=== PATIENT | female | born 1950 | race Caucasian/White ===

== ENCOUNTER 2019-09-15 08:11 | Emergency (ER) | payer OTHER, BC ==
--- OUTSIDE RECORDS SUMMARY | 2019-09-15 08:16 | XMS REPORT ---
:1950 [facility] Address [address] [place] [address] Care Team Providers Name Role Phone Unavailable Unavailable Unavailable Payers Payer Name Policy Type Policy Number Effective Date Expiration Date Problems This patient has no known problems. Allergies, Adverse Reactions, Alerts Allergy Allergy Status Severity Reaction(s) Onset Inactive Treating Comments Name Type Date Date Clinician No Known DA Active U 2018-06 Allergies -15 00:00:0 0 Medications This patient has no known medications.
[2019-09-15] MEDS ORDERED: DIAZEPAM 10 MG/2 ML INJ SYRINGE ONE (08:36)
[2019-09-15] MEDS ORDERED: KETOROLAC 30 MG/ML INJ ONE (08:36)
[2019-09-15 08:47] LABS: Urine Blood 2+ (NEG); Urine Glucose 2+ (NEG); Urine Protein NEGATIVE (NEG); Urine Specific Gravity 1.025 (1.005-1.030)
[2019-09-15 08:57] LABS: Absolute Lymphocytes (CBC) 2.1 K/uL (0.7-4.9); Basophils % 0.6 % (0-1.3); Hematocrit 44.7 % (36.0-45.0); Lymphocytes % 38.6 % (15.3-44.8); MPV 8.7 fL (7.6-11.3); RBC Red Blood Cell Count 4.84 M/uL (3.86-4.86)
[2019-09-15 08:59] LABS: Urine Bacteria <20 /HPF (<20); Urine Culture Reflex Order REFLEXED; Urine RBC >50 /HPF (NONE SEEN); Urine Urothelial Cells <5 /HPF (NONE SEEN)
[2019-09-15 09:10] LABS: Albumin 3.5 g/dL (3.4-5.0); Bilirubin Direct 0.2 mg/dL (0-0.2); Bilirubin Total 0.8 mg/dL (0.2-1.0); Potassium 3.7 mmol/L (3.5-5.1); Protein, Total 7.9 g/dL (6.4-8.2)
--- NOTE | 2019-09-15 09:14 | RAD REPORT ---
EXAM DESCRIPTION: CT - Stone Protocol - 09/15/2019 8:47 am CLINICAL HISTORY: Abdominal pain. COMPARISON: 2008 TECHNIQUE: Computed axial tomography of the abdomen pelvis was obtained without oral or IV contrast. Lack of IV and oral contrast limits evaluation of solid organs, bowel, and vessels. Coronal reformat roe images were obtained and reviewed. All CT scans are performed using dose optimization technique as appropriate and may include automated exposure control or mA/KV adjustment according to patient size. FINDINGS: A renal calculus is not seen. An ureteral calculus is not noted. A bladder calculus is not present. 5 millimeter low-density lesion within the liver are nonspecific but probably a cyst The Spleen, pancreas and adrenals appear grossly normal There is no evidence of diverticulitis. 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 Hysterectomy IMPRESSION: Negative for a genitourinary calculus
--- NOTE | 2019-09-15 09:36 | RAD REPORT ---
EXAM DESCRIPTION: Michael Single View09/15/2019 9:27 am CLINICAL HISTORY: Abdominal pain COMPARISON: 2013 FINDINGS: The lungs appear clear of acute infiltrate. The heart is normal size IMPRESSION: No acute abnormalities displayed
--- NOTE | 2019-09-15 09:57 | ER ---
Nurse's Notes [facility] Name: Oneyda Johnson Age: 68 yrs Sex: Female : 1950 Arrival Date: 09/15/2019 Time: 08:15 Bed 5 Private MD: Marco Antonio Merino Diagnosis: Low back pain;Urinary tract infection, site not specified Presentation: 09/15 08:20 Presenting complaint: Patient states: since yesterday evening i started having this low tw2 back pain, its worse on the right but it does hurt across both sides on the lower back, i am nauseous at times, and i have had a kidney stone before and it feels like that but i do not have urine urgency or pain. Transition of care: patient was not received from another setting of care. Onset of symptoms was September 15, 2019. Risk Assessment: Do you want to hurt yourself or someone else? Patient reports no desire to harm self or others. Initial Sepsis Screen: Does the patient meet any 2 criteria? No. Patient's initial sepsis screen is negative. Does the patient have a suspected source of infection? No. Patient's initial sepsis screen is negative. Care prior to arrival: None. 08:20 Method Of Arrival: Ambulatory tw2 08:20 Acuity: YOLI 3 tw2 08:21 Note pt ambulatory slowly to the restroom at this time. tw2 Triage Assessment: 08:22 General: Appears uncomfortable, Behavior is calm, cooperative, appropriate for age. tw2 Pain: Complains of pain in right low back. GI: Reports nausea. : Denies burning with urination, urinary frequency. Historical: - Allergies: 08:28 No Known Allergies; sv - Home Meds: 08:28 metformin er 500 mg BID [Active]; Jardiance 25 mg oral tab 1 tab once daily [Active]; sv fluoxetine 20 mg Oral cap 1 cap once daily [Active]; ezetimibe oral 10mg daily oral [Active]; Co Q-10 100 mg oral cap daily [Active]; Vitamin D3 2,000 unit oral tab daily [Active]; Pure way-C 500 mg +R-Alpha lipoic daily [Active]; curamin cap daily prn [Active]; Coenzymated women's 45+ daily [Active]; zinc balance [Active]; - PMHx: 08:28 Diabetes - NIDDM; sv - PSHx: 08:28 ; Hysterectomy; sv - Immunization history:: Adult Immunizations up to date. - Coronavirus screen:: The patient has NOT traveled to [place] in the past 14 days. Proceed with normal triage process as indicated. The patient has NOT had contact with known/suspected case of Coronavirus? Proceed with normal triage procedures. - Social history:: Smoking status: Patient denies any tobacco usage or history of. - Ebola Screening: : No symptoms or risks identified at this time. Screenin:21 Abuse screen: Denies threats or abuse. Nutritional screening: No deficits noted. tw2 Tuberculosis screening: No symptoms or risk factors identified. Fall Risk None identified. Assessment: 08:30 General: Appears uncomfortable, slender, well groomed, Behavior is calm, cooperative, tw2 appropriate for age. Pain: Complains of pain in left low back and right low back. Neuro: Level of Consciousness is awake, alert, obeys commands, Oriented to person, place, time, situation. Cardiovascular: Heart tones S1 S2 Patient's skin is warm and dry. Respiratory: Airway is patent Respiratory effort is even, unlabored, Respiratory pattern is regular, symmetrical, Breath sounds are clear bilaterally. GI: Abdomen is flat, Bowel sounds present X 4 quads. Abd is soft and non tender X 4 quads. Reports nausea. : No signs and/or symptoms were reported regarding the genitourinary system. : Denies burning with urination, urinary frequency. EENT: No signs and/or symptoms were reported regarding the EENT system. Derm: No signs and/or symptoms reported regarding the dermatologic system. Musculoskeletal: Reports pain in right low back and left low back, right is worse. 09:12 Reassessment: Patient appears in no apparent distress at this time. Patient and/or tw2 family updated on plan of care and expected duration. Pain level reassessed. Patient is alert, oriented x 3, equal unlabored respirations, skin warm/dry/pink. Patient states feeling better. Patient states symptoms have improved. 10:00 Reassessment: Patient appears in no apparent distress at this time. Patient and/or hb family updated on plan of care and expected duration. Pain level reassessed. Patient is alert, oriented x 3, equal unlabored respirations, skin warm/dry/pink. Vital Signs: 08:28 Pulse 66; Resp 17; Temp 97.8(TE); Pulse Ox 98% on R/A; Weight 62.6 kg (R); Height 5 ft. tw2 1 in. (154.94 cm); Pain 4/10; 08:30 BP 130 / 68; tw2 09:07 BP 131 / 74; Pulse 50; Resp 16; Pulse Ox 98% on R/A; tw2 10:00 BP 136 / 74; Pulse 68; Resp 15; Pulse Ox 99% on R/A; hb 08:28 Body Mass Index 26.07 (62.60 kg, 154.94 cm) tw2 08:28 "if i move a certain way though its like it just catches just right and its a 10/10 or tw2 off the charts." ED Course: 08:15 Patient arrived in ED. ag5 08:15 Marco Antonio Merino MD is Private Physician. ag5 08:16 Hong Arana PA is PHCP. cp 08:16 Hong Jaime MD is Attending Physician. cp 08:21 Tamara Nance RN is Primary Nurse. tw2 08:21 Arm band placed on. tw2 08:21 Adult w/ patient. tw2 08:29 Patient has correct armband on for positive identification. Bed in low position. Call sv light in reach. Pulse ox on. NIBP on. 08:38 Inserted saline lock: 20 gauge in right antecubital area, using aseptic technique. tw2 Blood collected. 08:48 Triage completed. tw2 10:28 No provider procedures requiring assistance completed. IV discontinued, intact, hb bleeding controlled, No redness/swelling at site. Pressure dressing applied. Administered Medications: 08:38 Drug: TORadol - Ketorolac 15 mg Route: IVP; Site: right antecubital; tw2 09:12 Follow up: Response: No adverse reaction; Pain is decreased tw2 08:40 Drug: Diazepam 2 mg Route: IVP; Site: right antecubital; tw2 09:12 Follow up: Response: No adverse reaction; Pain is decreased tw2 10:02 Drug: Rocephin 1 grams Route: IV; Rate: calculated rate; Site: right antecubital; hb 10:04 Follow up: IV Status: Completed infusion hb 10:28 Follow up: Response: No adverse reaction; IV Intake: 10ml hb Intake: 10:28 IV: 10ml; Total: 10ml. hb Outcome: 09:56 Discharge ordered by MD. cp 10:28 Discharged to home ambulatory, with significant other. hb 10:28 Condition: stable 10:28 Discharge instructions given to patient, Instructed on discharge instructions, follow up and referral plans. medication usage, Demonstrated understanding of instructions, follow-up care, medications, Prescriptions given X 4. 10:30 Patient left the ED. hb Signatures: Ann-Marie Contreras RN RN Hong Arana, MARCUS PA cp Deb Hemphill RN RN Tamara Nance RN RN tw2 Omi Carpio ag5 Corrections: (The following items were deleted from the chart) 08:28 08:22 : Reports urgency, urinary frequency, tw2 tw2
--- NOTE | 2019-09-15 09:57 | EDPHYS ---
Physician Documentation [facility] Name: Oneyda Johnson Age: 68 yrs Sex: Female : 1950 Arrival Date: 09/15/2019 Time: 08:15 Bed 5 Private MD: Marco Antonio Merino ED Physician Hong Jaime HPI: 09/15 08:25 This 68 yrs old Female presents to ER via Unassigned with complaints of Possible Kidney cp Stone. 08:25 The patient presents with pain that is acute, with no known mechanism of injury. cp 08:25 The symptoms are located in the low back, worse on right. Onset: The symptoms/episode cp began/occurred yesterday. Associated signs and symptoms: Pertinent positives: nausea, Pertinent negatives: constipation, fever, incontinence, numbness, urinary retention, vomiting, weakness. The patient has experienced similar episodes in the past, today's symptoms are similar, to when the patient was apparently diagnosed with kidney stone. Historical: - Allergies: 08:28 No Known Allergies; sv - Home Meds: 08:28 metformin er 500 mg BID [Active]; Jardiance 25 mg oral tab 1 tab once daily [Active]; sv fluoxetine 20 mg Oral cap 1 cap once daily [Active]; ezetimibe oral 10mg daily oral [Active]; Co Q-10 100 mg oral cap daily [Active]; Vitamin D3 2,000 unit oral tab daily [Active]; Pure way-C 500 mg +R-Alpha lipoic daily [Active]; curamin cap daily prn [Active]; Coenzymated women's 45+ daily [Active]; zinc balance [Active]; - PMHx: 08:28 Diabetes - NIDDM; sv - PSHx: 08:28 ; Hysterectomy; sv - Immunization history:: Adult Immunizations up to date. - Coronavirus screen:: The patient has NOT traveled to [place] in the past 14 days. Proceed with normal triage process as indicated. The patient has NOT had contact with known/suspected case of Coronavirus? Proceed with normal triage procedures. - Social history:: Smoking status: Patient denies any tobacco usage or history of. - Ebola Screening: : No symptoms or risks identified at this time. ROS: 08:30 Constitutional: Negative for body aches, chills, fever, poor PO intake. cp 08:30 Eyes: Negative for injury, pain, redness, and discharge. cp 08:30 ENT: Negative for drainage from ear(s), ear pain, sore throat, difficulty swallowing, difficulty handling secretions. 08:30 Cardiovascular: Negative for chest pain, edema, palpitations. 08:30 Respiratory: Negative for cough, shortness of breath, wheezing. 08:30 Abdomen/GI: Negative for nausea, vomiting, and diarrhea, constipation, black/tarry stool, rectal bleeding, bowel incontinence. 08:30 Back: Positive for pain at rest, pain with movement, of the right low back, Negative for injury or acute deformity. 08:30 : Negative for urinary symptoms, bladder incontinence. 08:30 Neuro: Negative for altered mental status, headache, numbness, tingling, weakness. 08:30 All other systems are negative. Exam: 08:34 Head/Face: Normocephalic, atraumatic. cp 08:34 Constitutional: The patient appears in no acute distress, alert, awake, non-toxic, well developed, well nourished. 08:34 Eyes: Periorbital structures: appear normal, Conjunctiva: normal, no exudate, no injection, Sclera: no appreciated abnormality, Lids and lashes: appear normal, bilaterally. 08:34 ENT: External ear(s): are unremarkable, Nose: is normal, Mouth: is normal, Posterior pharynx: is normal, airway is patent, no erythema, no exudate. 08:34 Chest/axilla: Inspection: normal. 08:34 Cardiovascular: Rate: normal, Rhythm: regular. 08:34 Respiratory: the patient does not display signs of respiratory distress, Respirations: normal, no use of accessory muscles, labored breathing, is not present. 08:34 Abdomen/GI: Exam negative for discomfort, distension, guarding, Inspection: abdomen appears normal. 08:34 Back: pain, that is moderate, of the right low back, ROM is painful, muscle spasm, is not present. 08:34 Neuro: Orientation: to person, place \\T\\ time. Mentation: is normal, Motor: moves all fours, strength is normal, Gait: is steady. Vital Signs: 08:28 Pulse 66; Resp 17; Temp 97.8(TE); Pulse Ox 98% on R/A; Weight 62.6 kg (R); Height 5 ft. tw2 1 in. (154.94 cm); Pain 4/10; 08:30 BP 130 / 68; tw2 09:07 BP 131 / 74; Pulse 50; Resp 16; Pulse Ox 98% on R/A; tw2 10:00 BP 136 / 74; Pulse 68; Resp 15; Pulse Ox 99% on R/A; hb 08:28 Body Mass Index 26.07 (62.60 kg, 154.94 cm) tw2 08:28 "if i move a certain way though its like it just catches just right and its a 10/10 or tw2 off the charts." MDM: 08:17 Patient medically screened. cp 09:55 Data reviewed: vital signs, nurses notes, lab test result(s), radiologic studies, CT cp scan, and as a result, I will discharge patient. 09:55 Differential diagnosis: ruptured disc, Ureterolithiasis sciatica, cauda equina, spinal cp stenosis. Counseling: I had a detailed discussion with the patient and/or guardian regarding: the historical points, exam findings, and any diagnostic results supporting the discharge/admit diagnosis, lab results, radiology results, the need for outpatient follow up, a family practitioner, to return to the emergency department if symptoms worsen or persist or if there are any questions or concerns that arise at home. Response to treatment: the patient's symptoms have markedly improved after treatment, and as a result, I will discharge patient. 09/15 08:27 Order name: CT Stone Protocol 09/15 10:23 Order name: Basic Metabolic Panel [facility] 09/15 10:23 Order name: CBC with Automated Diff [facility] 09/15 10:23 Order name: Lipase [facility] 09/15 10:23 Order name: Liver (Hepatic) Function [facility] 09/15 10:28 Order name: Urine Dipstick-Ancillary [facility] 09/15 10:29 Order name: Urine Microscopic Only [facility] 09/15 08:17 Order name: Urine Dipstick-Ancillary (obtain specimen); Complete Time: 08:31 09/15 08:27 Order name: IV Saline Lock; Complete Time: 08:45 09/15 08:27 Order name: Labs collected and sent; Complete Time: 08:45 09/15 10:23 Order name: Stone Protocol EDOK Administered Medications: 08:38 Drug: TORadol - Ketorolac 15 mg Route: IVP; Site: right antecubital; tw2 09:12 Follow up: Response: No adverse reaction; Pain is decreased tw2 08:40 Drug: Diazepam 2 mg Route: IVP; Site: right antecubital; tw2 09:12 Follow up: Response: No adverse reaction; Pain is decreased tw2 10:02 Drug: Rocephin 1 grams Route: IV; Rate: calculated rate; Site: right antecubital; hb 10:04 Follow up: IV Status: Completed infusion hb 10:28 Follow up: Response: No adverse reaction; IV Intake: 10ml hb Disposition: 12:20 Co-signature as Attending Physician, Hong Jaime MD I agree with the assessment and [facility] plan of care. Disposition: 09/15/19 09:56 Discharged to Home. Impression: Low back pain, Urinary tract infection, site not specified. - Condition is Stable. - Discharge Instructions: Back Pain, Adult, Urinary Tract Infection, Adult, Heat Therapy, Back Exercises. - Prescriptions for Augmentin 875- 125 mg Oral Tablet - take 1 tablet by ORAL route every 12 hours for 7 days; 14 tablet. Naprosyn 500 mg Oral Tablet - take 1 tablet by ORAL route 2 times per day take with food; 20 tablet. Cyclobenzaprine 10 mg Oral Tablet - take 1 tablet by ORAL route every 8 hours As needed; 20 tablet. Tramadol 50 mg Oral Tablet - take 1 tablet by ORAL route every 8 hours as needed; 20 tablet. - Medication Reconciliation Form, Thank You Letter, Antibiotic Education, Prescription Opioid Use form. - Follow up: Private Physician; When: 2 - 3 days; Reason: Recheck today's complaints. - Problem is new. - Symptoms have improved. Signatures: Dispatcher [employer] Ann-Marie Morales RN RN sv Anderson, Corey, MD MD cha Page, Corey, PA PA cp Baxter, Heather, Tamara Freitas RN, RN RN tw2 Corrections: (The following items were deleted from the chart) 08:25 08:24 This 68 yrs old presents to ER via Unassigned with complaints of Possible Kidney cp Stone. cp 10:30 09:56 09/15/2019 09:56 Discharged to Home. Impression: Low back pain; Urinary tract hb infection, site not specified. Condition is Stable. Forms are Medication Reconciliation Form, Thank You Letter, Antibiotic Education, Prescription Opioid Use. Follow up: Private Physician; When: 2 - 3 days; Reason: Recheck today's complaints. Problem is new. Symptoms have improved. cp
[2019-09-15] MEDS ORDERED: CEFTRIAXONE/SWI 1gm 1 GM/10 ML SYR ONE (10:05)
[2019-09-15 10:46] VITALS: TEMP 97.8
[2019-09-15 10:49] VITALS: BP 136/74; O2SAT 99
== END 2019-09-15 10:30 | disposition home or self-care (01) ==
LOC: ER 08:11
DX: N39.0 Urinary tract infection, site not specified (principal); E11.9 Type 2 diabetes mellitus without complications
CPT/HCPCS: 87088; 85025; 87086; 80048; 36415; 80076; 83690; 76377; 74176; 71045; 96375; 96374; 99284; J3360; J0696; 81003; 81015; 87077; 87186

== ENCOUNTER 2023-05-31 13:52 | Emergency (ER) | payer OTHER, BC ==
--- OUTSIDE RECORDS SUMMARY | 2023-05-31 13:56 | XMS REPORT | Continuity of Care Document ---
:1950 Author Organization [facility] t Address [address] [place] [address] [place] [id number] Care Team Providers Name Role Phone PCP, PATIENT DOES NOT HAVE A Primary Care Physician Unavaila EDWARD Godinez Attending Clinician Unavailable Edward Gilman MD Attending Clinician Doctor Unassigned, [place] Attending Clinician Unavailable Deb Gaming MA Attending Clinician Unavailable NATHALY PEPE Attending Clinician Unavailable VINCENT ROJAS Attending Clinician Unavailable LILIBETH HENDRICKS Attending Clinician Unavailable Olga Cordero MA Attending Clinician Unavailable Therapy, [facility] Covid Infusion Attending Clinician Unavailable Tevin Cowan MD Attending Clinician TEVIN COWAN Attending Clinician Unavailable Sabiha Hernandes RN Attending Clinician Unavailable BRIAN KENDALL Attending Clinician Unavailable Only, [facility] Pob2 Test Attending Clinician Unavailable Brian Kendall DO Attending Clinician Pob1, Acute Care Clinic Attending Clinician Unavailable Risa Mac Attending Clinician RISA VENEGAS Attending Clinician Unavailable EDWARD GILMAN Admitting Clinician Unavailable Payers Payer Name Policy Type Policy Number Effective Date Expiration Date S juan MEDICARE PART A \T\ [id number] 2017 B 00:00:00 [facility] [id number] 2017 00:00:00 BCBS 2 [id number] 2020 00:00:00 Problems Condition Condition Condition Status Onset Resolution Last Treating Co mments Source Name Details Category Date Date Treatment Clinician Date Varicose Varicose Disease Active Unive rs veins of veins of 3-29 [place]y of [place] extrem[place] extremitie 00 Me dical s s Branch Body mass Body mass Disease Active Uni vers index index 3-29 ity of (BMI) (BMI) 00:00: [place] 27.0-27.9, 27.0-27.9, 00 Me dical adult adult Branch Body mass Body mass Disease Active Uni vers index index 3-29 ity of (BMI) (BMI) 00:00: [place] 27.0-27.9, 27.0-27.9, 00 Me dical adult adult Branch COVID-19 COVID-19 Disease Active Unive rs 1-10 ity of 00:00: Medical Branch Congestion Congestion Disease Active U nivers of nasal of nasal 1-10 ity of sinus sinus 00:00: Medical Branch Numbness Numbness Disease Active Unive rs of upper of upper 9-27 ity of limb limb 00:00: [place] [facility] Menopausal Menopausal Disease Active U nivers and female and female 9 it y of climacteri climacteri 00:[place] c states c states 00 Medica l Branch Osteopenia Osteopenia Disease Active U nivers , , 4 ity of unspecifie unspecifie 00:[place] d [place] d location 00 Me dical Branch Screening Screening Disease Active Uni vers for for 4 ity of thyroid thyroid 00:00: [place] disorder disorder 00 Medica l Branch Hyperlipid Hyperlipid Disease Active U nivers emia emia 4 ity of 00:00: [place] 00 Medical Branch Type 2 Type 2 Disease Active Univers diabetes diabetes 4 ity of mellitus mellitus 00:00: [place] without without 00 Medical complicati complicati Br anch on, on, without without long-term long-term current current use of use of insulin insulin Allergies, Adverse Reactions, Alerts Allergy Allergy Status Severity Reaction(s) Onset Inactive Treating Comm ents Source Name Type Date Date Clinician No Known DA Active U 2017- [facility] Allergie 2-15 [place] [facility] NO KNOWN Drug Active Univers ALLERGIE Class ity of S [facility] Social History Social Habit Start Date Stop Date Quantity Comments Source Exposure to 2022-04-28 2022-05-08 Not sure [facility]-CoV-2 00:00:00 10:37:00 [facility] (event) [place] Alcohol intake 2022-05-08 2022-05-08 Ex-drinker [facility] 00:00:00 00:00:00 (finding) [facility] Tobacco use and 2020-11-23 2020-11-23 Smokeless tobacco Un iversity of exposure 00:00:00 00:00:00 non-user [facility] Sex Ass[birth year] At [birth year] Universit y of 00:00:00 00:00:00 [facility] Smoking Status Start Date Stop Date Source Never smoked tobacco [facility] [place] [facility] Medications Ordered Filled Start Stop Current Ordering Indication Dosage Frequency Signature Comments Components Source Medication Medication Date Date Medication? Clinician (SIG) Name Name FLUOXETINE Yes [id number] TAKE 1 U nivers 20 mg 9-23 CAPSULE BY ity of capsule 00:00: MOUTH [place] EVERY DAY Medical Branch FLUOXETINE Yes [id number] TAKE 1 U nivers 20 mg 9-23 CAPSULE BY ity of capsule 00:00: MOUTH EVERY DAY Medical Branch FLUOXETINE Yes [id number] TAKE 1 U nivers 20 mg 9-23 CAPSULE BY ity of capsule 00:00: MOUTH [place] 00 EVERY DAY Medical Branch omega-3s/dh Yes Take by Uni vers a/epa/fish 4-28 mouth. ity of oil/D3 10:25: [place] (VITAMIN-D 52 Medical + OMEGA-3 Branch ORAL) vitamin C Yes 1{tbl} Take 1 Univ ers with marjorie 4-28 tablet by ity o f hips 250 mg 10:25: [place] tablet [place] Ca/D3/mag Yes 1{tbl} Take 1 Univ ers ox/zinc/copper plate lithographer 4-28 tablet by ity of /jorge/bor 10:25: mouth. [place] (CALCIUM 52 Medical 600-D3 Branch PLUS, MAG-ZINC, ORAL) multivitami Yes 1{tbl} Take 1 Un tricia n (MULTIPLE 4-28 tablet by ity of VITAMIN 10:25: mouth. [place] ORAL) Medical Branch OMEGA-3 Yes Take by Univers FATTY 4-28 mouth. ity of ACIDS-FISH 10:25: [place] OIL ORAL 52 Medical Branch COQ10, 0 Yes 1{tbl} Take 1 Univers UBIQUINOL, 4-28 tablet by ity of ORAL 10:25: mouth. [place] [address] Medical Branch ZINC ORAL 0 Yes 1{capsu Take 1 Uni vers 4-28 le} capsule by ity of 10:25: mouth. [address] Branch omega-3s/dh Yes Take by Uni vers a/epa/fish 4-28 mouth. ity of oil/D3 10:25: [place] (VITAMIN-D 52 Medical + OMEGA-3 Branch ORAL) vitamin C Yes 1{tbl} Take 1 Univ ers with marjorie 4-28 tablet by ity o f [place] 250 mg 10:25: [place]. [place] tablet [place] Ca/D3/mag Yes 1{tbl} Take 1 Univ ers ox/zinc/copper plate lithographer 4-28 tablet by ity of /jorge/bor 10:25: mouth. [place] (CALCIUM 52 Medical 600-D3 Branch PLUS, MAG-ZINC, ORAL) multivitami Yes 1{tbl} Take 1 Un tricia n (MULTIPLE 4-28 tablet by ity of VITAMIN 10:25: mouth. [place] ORAL) Medical Branch OMEGA-3 Yes Take by Univers FATTY 4-28 mouth. ity of ACIDS-FISH 10:25: [place] OIL ORAL Medical Branch COQ10, Yes 1{tbl} Take 1 Univers UBIQUINOL, 4-28 tablet by ity of ORAL 10:25: mouth. [place] [address] Medical Branch ZINC ORAL 0 Yes 1{capsu Take 1 Uni vers 4-28 le} capsule by ity of 10:25: mouth. [address] Branch omega-3s/dh 0 Yes Take by Uni vers a/epa/fish 4-28 mouth. ity of oil/D3 10:25: [place] (VITAMIN-D 52 Medical + OMEGA-3 Branch ORAL) vitamin C 0 Yes 1{tbl} Take 1 Univ ers with marjorie 4-28 tablet by ity o f [place] 250 mg 10:25: [place]. [place] tablet 52 [place] Branch Ca/D3/mag 0 Yes 1{tbl} Take 1 Univ ers ox/zinc/copper plate lithographer 4-28 tablet by ity of /jorge/bor 10:25: mouth. [place] (CALCIUM 52 Medical 600-D3 Branch PLUS, MAG-ZINC, ORAL) multivitami Yes 1{tbl} Take 1 Un tricia n (MULTIPLE 4-28 tablet by ity of VITAMIN 10:25: mouth. [place] ORAL) Medical Branch OMEGA-3 Yes Take by Univers FATTY 4-28 mouth. ity of ACIDS-FISH 10:25: [place] OIL ORAL 52 Medical Branch COQ10, Yes 1{tbl} Take 1 Univers UBIQUINOL, 4-28 tablet by ity of ORAL 10:25: mouth. [place] [address] Medical Branch ZINC ORAL 0 Yes 1{capsu Take 1 Uni vers 4-28 le} capsule by ity of 10:25: mouth. [place] [address] Medical Branch omega-3s/dh Yes Take by Uni vers a/epa/fish 4-28 mouth. ity of oil/D3 10:25: [place] (VITAMIN-D 52 Medical + OMEGA-3 Branch ORAL) vitamin C Yes 1{tbl} Take 1 Univ ers with marjorie 4-28 tablet by ity o f hips 250 mg 10:25: [place]. [place] tablet 52 Medical Branch Ca/D3/mag 0 Yes 1{tbl} Take 1 Univ ers ox/zinc/copper plate lithographer 4-28 tablet by ity of /jorge/bor 10:25: mouth. [place] (CALCIUM 52 Medical 600-D3 Branch PLUS, MAG-ZINC, ORAL) multivitami Yes 1{tbl} Take 1 Un tricia n (MULTIPLE 4-28 tablet by ity of VITAMIN 10:25: mouth. [place] ORAL) 52 Medical Branch OMEGA-3 Yes Take by Univers FATTY 4-28 mouth. ity of ACIDS-FISH 10:25: [place] OIL ORAL 52 Medical Branch COQ10, Yes 1{tbl} Take 1 Univers UBIQUINOL, 4-28 tablet by ity of ORAL 10:25: mouth. [address] ZINC ORAL Yes 1{capsu Take 1 Uni vers 4-28 le} capsule by ity of 10:25: mouth. [address] OZEMPIC Yes INJECT Univers 0.25 mg or 3-30 0.25 MG ity of 0.5 mg(2 00:00: ONCE A [place] mg/1.5 mL) 00 WEEK Medica l PnIj DIRECTED Branch OZEMPIC Yes INJECT Univers 0.25 mg or 3-30 0.25 MG ity of 0.5 mg(2 00:00: ONCE A [place] mg/1.5 mL) 00 WEEK Medica l PnIj DIRECTED Branch OZEMPIC Yes INJECT Univers 0.25 mg or 3-30 0.25 MG ity of 0.5 mg(2 00:00: ONCE A [place] mg/1.5 mL) 00 WEEK Medica l PnIj DIRECTED Branch OZEMPIC Yes INJECT Univers 0.25 mg or 3-30 0.25 MG ity of 0.5 mg(2 00:00: ONCE A [place] mg/1.5 mL) 00 WEEK Medica l PnIj DIRECTED Branch hydrOXYchlo Yes 2 po bid Un tricia roQUINE 200 3-28 On day One it y of mg tablet 00:00: [place] Day 2. [place] 00 On day 3-5 Medical Take One Branch Tab Bid . Remain on one Tab Twice a week ivermectin Yes 4 po Each Un tricia 3 mg tablet 3-28 day for 3 ity of 00:00: days [place] [facility] hydrOXYchlo Yes 2 po bid Un tricia roQUINE 200 3-28 On day One it y of mg tablet 00:00: [place] Day 2. [place] 00 On day 3-5 Medical Take One Branch Tab Bid . Remain on one Tab Twice a week ivermectin Yes 4 po Each Un tricia 3 mg tablet 3-28 day for 3 it y of 00:00: days [place] [facility] Branch hydrOXYchlo Yes 2 po bid Un tricia roQUINE 200 3-28 On day One it y of mg tablet 00:00: and Day 2. [place] 00 On day 3-5 Medical Take One Branch Tab Bid . Remain on one Tab Twice a week ivermectin 0 Yes 4 po Each Un tricia 3 mg tablet 3-28 day for 3 ity of 00:00: days [place] Medical [facility] hydrOXYchlo 2021-0 Yes 2 po bid Un tricia roQUINE 200 3-28 On day One it y of mg tablet 00:00: and Day 2. [place] 00 On day 3-5 Medical Take One Branch Tab Bid . Remain on one Tab Twice a week ivermectin 2021- Yes 4 po Each Un tricia 3 mg tablet 3-28 day for 3 ity of 00:00: days [place] 00 Medical Branch traMADoL 50 2021-0 Yes TAKE 1/2-1 Univers mg tablet 3-08 TABLETS BY ity of 00:00: MOUTH [place] 00 EVERY 4-6 Medical HOURS Branch NEEDED FOR PAIN traMADoL 50 2021-0 Yes TAKE 1/2-1 Univers mg tablet 3-08 TABLETS BY ity of 00:00: MOUTH [place] 00 EVERY 4-6 Medical HOURS Branch NEEDED FOR PAIN traMADoL 50 2021-0 Yes TAKE 1/2-1 Univers mg tablet 3-08 TABLETS BY ity of 00:00: MOUTH [place] 00 EVERY 4-6 Medical HOURS Branch NEEDED FOR PAIN traMADoL 50 2021-0 Yes TAKE 1/2-1 Univers mg tablet 3-08 TABLETS BY ity of 00:00: MOUTH [place] 00 EVERY 4-6 Medical HOURS Branch NEEDED FOR PAIN albuterol 5 2021-0 Yes 1{vial} Inhale 1 Univers mg/mL 1-10 Vial. ity of nebulizer 00:00: [place] solution 00 Medical Branch albuterol 5 2021-0 Yes 1{vial} Inhale 1 Univers mg/mL 1-10 Vial. ity of nebulizer 00:00: [place] solution 00 Medical Branch albuterol 5 2021-0 Yes 1{vial} Inhale 1 Univers mg/mL 1-10 Vial. ity of nebulizer 00:00: [place] solution 00 Medical Branch albuterol 5 2021-0 Yes 1{vial} Inhale 1 Univers mg/mL 1-10 Vial. ity of nebulizer 00:00: [place] solution 00 Medical Branch budesonide- 2021-0 2022- No 2{puff} Inhale 2 Univers formoteroL 08-05 01-08 Puffs. ity of 160-4.5 00:00: 05:59 [place] mcg/actuati 00 :00 Medical on inhaler Branch budesonide- 2021-0 2022- No 2{puff} Inhale 2 Univers formoteroL 08-05-08 Puffs. ity of 160-4.5 00:00: 05:59 [place] mcg/actuati 00 :00 Medical on inhaler Branch budesonide- 2021-0 2022- No 2{puff} Inhale 2 Univers formoteroL 08-05-08 Puffs. ity of 160-4.5 00:00: 05:59 [place] mcg/actuati 00 :00 Medical on inhaler Branch budesonide- 2021-0 2022- No 2{puff} Inhale 2 Univers formoteroL 08-05-08 Puffs. ity of 160-4.5 00:00: 05:59 [place] mcg/actuati 00 :00 Medical on inhaler Branch FLUOXETINE 2020-0 Yes [id number] TAKE 1 U nivers 20 mg 9-20 CAPSULE BY ity of capsule 00:00: MOUTH [place] 00 EVERY DAY Medical Branch FLUOXETINE 2020-0 2021- No [id number] TAKE 1 Univers 20 mg 9-20 09-23 CAPSULE BY ity of capsule 00:00: 00:00 MOUTH [place] 00 :00 EVERY DAY Medical Branch ubiquinoL-B Yes Take by Uni vers 12-FA-resve 4-27 mouth. ity of ratroL 10:29: [place] 200-5-0.8-4 46 Medical 00 mg Cap Branch ascorbic 0 Yes Take by 24h00er s acid 4-27 mouth. ity of (VITAMIN C 10:29: [place] ORAL) 46 Medical Branch ZINC ORAL 0 Yes Take by Unive rs 4-27 mouth. ity of 10:29: [place] 46 Medical Branch ubiquinoL-B 0 Yes Take by Uni vers 12-FA-resve 4-27 mouth. ity of ratroL 10:29: [place] 200-5-0.8-4 46 Medical 00 mg Cap Branch ascorbic 0 Yes Take by Univer s acid 4-27 mouth. ity of (VITAMIN C 10:29: [place] ORAL) 46 Medical Branch ZINC ORAL Yes Take by Unive rs - mouth. ity of 10:29: [place] [address] Medical Branch ubiquinoL-B Yes Take by Uni vers 12-FA-resve 11-23 mouth. ity of ratroL 10:29: [place] 200-5-0.8-4 46 Medical 00 mg Cap Branch ascorbic Yes Take by Univer s acid - mouth. ity of (VITAMIN C 10:29: [place] ORAL) Medical Branch ZINC ORAL Yes Take by Unive rs - mouth. ity of 10:29: [place] [address] Medical Branch ubiquinoL-B Yes Take by Uni vers 12-FA-resve 11-23 mouth. ity of ratroL 10:29: [place] 200-5-0.8-4 46 Medical 00 mg Cap Branch ascorbic Yes Take by Univer s acid - mouth. ity of (VITAMIN C 10:29: [place] ORAL) Medical Branch ZINC ORAL Yes Take by Unive rs - mouth. ity of 10:29: [place] [address] Medical Branch empaglifloz Yes 1{tbl} Take 1 Un tricia in 4-06 tablet by ity of (JARDIANCE) 00:00: [place]. [place] 25 mg Tab 00 Medical Branch ezetimibe Yes 10mg Take 10 mg Un tricia 10 mg 4-06 by mouth. ity of tablet 00:00: [place] 00 Medical Branch metformin Yes Take 2 Univer s ER 500 mg 4-06 tabs each ity o f 24 hr 00:00: morning. [place] tablet 00 If have Medical low blood Branch sugar then take 1 tab twice daily. empaglifloz Yes 1{tbl} Take 1 Un tricia in 4-06 tablet by ity of (JARDIANCE) 00:00: [place]. [place] 25 mg Tab 00 Medical Branch ezetimibe Yes 10mg Take 10 mg Un tricia 10 mg 4-06 by mouth. ity of tablet 00:00: [place] 00 Medical Branch metformin Yes Take 2 Univer s ER 500 mg 4-06 tabs each ity o f 24 hr 00:00: morning. [place] tablet 00 If have Medical low blood Branch sugar then take 1 tab twice daily. empaglifloz Yes 1{tbl} Take 1 Un tricia in 4-06 tablet by ity of (JARDIANCE) 00:00: [place]. [place] 25 mg Tab 00 Medical Branch ezetimibe Yes 10mg Take 10 mg Un tricia 10 mg 4-06 by mouth. ity of tablet 00:00: [place] [facility] metformin Yes Take 2 Univer s ER 500 mg 4-06 tabs each ity o f 24 hr 00:00: morning. [place] tablet 00 If have Medical low blood Branch sugar then take 1 tab twice daily. empaglifloz Yes 1{tbl} Take 1 Un tricia in 4-06 tablet by ity of (JARDIANCE) 00:00: [place]. [place] 25 mg Tab 00 Medical [place] ezetimibe Yes 10mg Take 10 mg Un tricia 10 mg 4-06 by mouth. ity of tablet 00:00: [facility] metformin Yes Take 2 Univer s ER 500 mg 4-06 tabs each ity o f 24 hr 00:00: morning. tablet 00 If have Medical low blood Branch sugar then take 1 tab twice daily. Vital Signs Vital Name Observation Time Observation Value Comments Source Systolic blood 2021-11-24 15:19:00 111 mm[Hg] [place] [facility] Diastolic blood 2021-11-24 15:19:00 72 mm[Hg] [place] [facility] Heart rate 2021-11-24 15:19:00 53 /min [facility] Body temperature 2021-11-24 15:19:00 36.89 Nicci [facility] Respiratory rate 2021-11-24 15:19:00 18 /min [facility] Body height 2021-11-24 15:19:00 154.9 cm [facility] Body weight 2021-11-24 15:19:00 64.921 kg [facility] BMI 2021-11-24 15:19:00 27.04 kg/m2 [facility] Procedures Procedure Date / Time Performing Clinician Source Performed BI SCREENING 2022-05-08 16:05:00 Edward Gilman [facility] [facility] f [place] TOMOSYNTHESIS BILATERAL [facility] Branch ASSIGNMENT OF BENEFITS 2022-05-08 15:35:07 Doctor Unasscameron, Renetta [facility] Encounters Start End Encounter Admission Attending Care Care Encounter Source Date/Time Date/Time Type Type Clinicians Facility Department ID 2022-11-27 2022-11-27 Outpatient EDWARD ZIEGLER [facility] [id number] Univers 10:00:00 10:00:00 ity of [facility] 2022-11-27 2022-11-27 Outpatient EDWARD ZIEGLER [facility] [id number] Univers 10:00:00 10:00:00 ity [facility] 2022-09-08 2022-09-08 Outpatient MHIE MHIE [id number] [place] 11:00:00 11:00:00 00 jim Real 2022-08-30 2022-08-30 Outpatient MHIE MHIE [id number] [place] 13:00:00 13:00:00 02 jim Real 2022-08-04 2022-08-04 Outpatient MHIE MHIE [id number] [place] 15:00:00 15:00:00 01 Farhan 2022-05-08 2022-05-08 Outpatient EDWARD ZIEGLER [facility] [id number] Univers 10:38:25 23:59:00 ity [facility] 2022-05-08 2022-05-08 [facility] Edward Gilman [facility] [id number] Univers 10:20:00 23:59:00 Encounter [place] [id number] ity of [place] 4.2.7.2.686 [facility] [id number] [facility] 800 Branch 2022-05-08 2022-05-08 Orders Doctor GORMAN 1.2.840.114 [id number] Univers 00:00:00 00:00:00 Only Unassigned, GREGORIO [id number] ity of [place] [facility] 4.2.7.2.686 Lui [id number] [address] 2022-03-27 2022-03-27 Refill Edward Gilman [facility] [id number] Univers 00:00:00 00:00:00 KETAN [id number] it y of [place] 4.2.7.2.686 [place] [facility] [id number] [address] 2021-11-24 2021-11-24 Office Edward Gilman [facility] [id number] Univers 10:00:00 11:05:02 Visit KETAN [id number] it y of [place] 4[place]2.7.2.686 [place] [facility] [id number] [address] 2021-11-24 2021-11-24 Outpatient R EDWARD GILMAN [facility] [id number] Univers 10:00:00 11:05:02 ity [facility] 2021-11-24 2021-11-24 Outpatient R EDWARD GILMAN [facility] [id number] Univers 10:00:00 11:05:02 ity [facility] 2021-11-24 2021-11-24 Outpatient R EDWARD GILMAN [facility] [id number] Univers 10:00:00 10:00:00 ity [facility] 2021-11-23 2021-11-23 Pre Visit MATT Gaming [id number] Univers 00:00:00 00:00:00 Outreach Deb AMADOR [id number] i ty of [place]2.7.2.686 [place] [id number] [facility] [address] [place] 2021-09-27 2021-09-27 Outpatient NATHALY PEPE [id number] Sheila 00:00:00 00:00:00 Seybol d 2021-08-17 2021-08-17 Orders Doctor VITA 1.2.840.114 [id number] Univers 00:00:00 00:00:00 Only Unassigned, GREGORIO [id number] ity of [place] [facility] 4.2.7.2.686 Lui as [id number] [address] 2021-08-11 2021-08-11 Outpatient SHEILA ROJAS [id number] Sheila 00:00:00 00:00:00 VINCENT pugh 2021-08-09 2021-08-09 Outpatient SHEILA HENDRICKS [id number] Sheila 00:00:00 00:00:00 LILIBETH burnham 2021-08-08 2021-08-08 Pre Visit MATT Cordero [id number] Univers 00:00:00 00:00:00 Outreach Olga AMADOR 350.1.13.10 i ty of [place]2.[place] [id number] [facility] [address] [place] 2021-08-06 2021-08-06 Nurse Therapy, Adc Covid Infusion [facility] 1.2.840.114 [id number] Univers 09:00:00 10:00:00 Visit Tevin Cowan 350.1.13.10 ity [facility] 4.2.7.2.686 [place] [id number] [facility] 053 Branch 2021-08-06 2021-08-06 Outpatient Tyrese COWAN [facility] [id number] Univers 09:00:00 09:00:00 TEVIN turner [facility] 2021-08-06 2021-08-06 Orders Doctor GORMAN 1.2.840.114 [id number] Univers 00:00:00 00:00:00 Only Unassigned, GREGORIO 350.1.13.10 ity of [place] [facility] 4.2.7.2.686 Lui as [id number] [facility] 009 Branch 2021-08-05 2021-08-05 Letter VITA Hernandes 1.2.840.114 [id number] Univers 00:00:00 00:00:00 (Out) Sabiha PERKINS [id number] it y of [facility] 4.2.7.2.686 Lui as [id number] [facility] 019 Branch 2021-08-04 2021-08-04 Outpatient Tyrese KENDALL [facility] [id number] Univers 10:00:00 10:00:00 BRIAN turner [facility] 2021-08-04 2021-08-04 Laboratory Only, Adc Pob2 Test [facility] 1.2 .840.114 [id number] Univers 10:00:00 10:00:00 Only ForeignBrian 350.1.13 .10 ity [facility] 4.2.7.2.686 [facility] [id number] Ak dical [facility] [address] [place] BUILDING 2021-05-06 2021-05-06 [facility] 1.2.840.114 [id number] Univers 10:09: 23:59:00 Encounter Gabe 350.1.13.10 ity of [place] 4.2.7.2.686 [facility] [id number] [address] 2021-05-06 2021-05-06 Outpatient R GIBSON GILMANN [facility] [id number] Univers 00:00:00 00:00:00 ity of [facility] 2021-04-18 2021-04-18 Refill Mukul [facility] 1.2.840.114 [id number] Univers 00:00:00 00:00:00 Ketan 350.1.13.10 it y of Women's 4.2.7.2.686 [facility] [id number] [facility] 134 Branch 2021-04-01 2021-04-01 Outpatient R GIBSON GILMANN [facility] [id number] Univers 00:00:00 00:00:00 ity of [facility] 2020-11-29 2020-11-[address] [facility] 1.2.840.114 [id number] Univers 10:20:00 23:59:00 Encounter [facility] [place] [id number] ity of [place] 4.2.7.2.686 [facility] [id number] [facility] [address] [place] 2020-11-29 2020-11-29 Outpatient R GIBSON GILMANN [facility] [id number] Univers 00:00:00 00:00:00 ity of [facility] 2020-11-23 2020-11-23 Outpatient R MUKUL EDWARD [facility] [id number] Univers 10:00:00 10:00:00 ity of [facility] 2020-11-23 2020-11-23 Orders Doctor VITA 1.2.840.114 [id number] Univers 00:00:00 00:00:00 Only Unassigned, GREGORIO 350.1.13.10 ity of [place] [facility] 4.2.7.2.686 Lui as [id number] [address] 2020-03-13 2020-03-13 Urgent Pob1, Acute Care Clinic [facility] 1. 2.840.114 [id number] Univers 12:27:45 12:47:45 [facility] [id number] ity of [place] 4.2.7.2.686 Lui as Professio [id number] Ak dical [address] Office Building [facility] 2020-03-13 2020-03-13 Urgent Pob1, Acute [facility] 1.2.840.114 [id number] 12:27:45 12:47:45 [facility] 350.1.13.10 [place] 4.2.7.2.686 Professio [id number] [place] [address] Office Building [facility] 2020-03-13 2020-03-13 [facility] [id number] Univers 12:20:00 12:20:00 RISA ity [facility] 2020-03-13 2020-03-13 Letter Doctor VITA 1.2.840.114 [id number] Univers 00:00:00 00:00:00 (Out) Unassigned, GREGORIO 350.1.13.10 ity of [place] [facility] 4.2.7.2.686 Lui as [id number] [address] 2020-03-13 2020-03-13 Letter Doctor VITA 1.2.840.114 [id number] 00:00:00 00:00:00 (Out) Unassigned, GREGORIO 350.1.13.10 [place] [facility] 4.2.7.2.686 [id number] Results This patient has no known results.
--- NOTE | 2023-05-31 15:21 | RAD REPORT ---
EXAM DESCRIPTION: RAD - Wrist Left 2 View - 05/31/2023 3:13 pm CLINICAL HISTORY: SMASH INJURY COMPARISON: No comparisons TECHNIQUE: Left wrist, 3 views. FINDINGS: Cortical irregularities suggesting minimally displaced fracture along the medial distal ra dial cortex best appreciated on the oblique view. There is no dislocation or periosteal reaction note d. No suspicious bony finding. No foreign body. Soft tissue swelling about the wrist medially. IMPRESSION: Minimally displaced fracture along the medial distal radial cortex. Additional soft tiss ue swelling.
--- NOTE | 2023-05-31 15:23 | RAD REPORT ---
EXAM DESCRIPTION: RAD - Elbow Left 2 View - 05/31/2023 3:13 pm CLINICAL HISTORY: SMASH INJURY COMPARISON: No comparisons TECHNIQUE: Left elbow, 3 views. FINDINGS: No fracture is identified. No elevated posterior fat pad to suggest an effusion. Enthesopa thy at the common extensor tendon attachment. There is no dislocation or periosteal reaction noted. No foreign body or other soft tissue abnormalit y. IMPRESSION: No acute osseous abnormality of the left elbow.
--- NOTE | 2023-05-31 15:35 | ER ---
Nurse's Notes [facility] Name: Oneyda Johnson Age: 72 yrs Sex: Female : 1950 Arrival Date: 05/31/2023 Time: 13:52 Bed 11 Private MD: Diagnosis: Distal radius fracture, left Presentation: 05/31 14:13 Chief complaint: Patient states: was walking and she tripped and fell. Pt denies LOC. cm10 Pt complaining of left wrist pain and left arm pain. Swelling noted to left wrist. Coronavirus screen: Vaccine status: Patient reports being unvaccinated. Client denies travel out of the [place] in the last 14 days. Ebola Screen: Patient denies travel to an Ebola-affected area in the 21 days before illness onset. No symptoms or risks identified at this time. Initial Sepsis Screen: Does the patient meet any 2 criteria? No. Patient's initial sepsis screen is negative. Does the patient have a suspected source of infection? No. Patient's initial sepsis screen is negative. Risk Assessment: Do you want to hurt yourself or someone else? Patient reports no desire to harm self or others. Onset of symptoms was May 31, 2023. 14:13 Method Of Arrival: Ambulatory cm10 14:13 Acuity: YOLI 4 cm10 Historical: - Allergies: 14:12 No Known Allergies; cm10 - PMHx: 14:12 Diabetes - NIDDM; cm10 - PSHx: 14:12 Total abdominal hysterectomy; cm10 - Immunization history:: Adult Immunizations unknown. - Social history:: Smoking status: Patient denies any tobacco usage or history of. Screenin:41 [facility] ED Fall Risk Assessment (Adult) Score/Fall Risk Level 0 - 2 = Low Risk ll1 Oriented to surroundings, Maintained a safe environment, Educated pt \T\ family on fall prevention, incl call for assistance when getting out of bed, Hourly rounding (assess needs \T\ fall precautionary measures) done. Abuse screen: Denies threats or abuse. Nutritional screening: No deficits noted. Tuberculosis screening: No symptoms or risk factors identified. Assessment: 14:39 General: Appears uncomfortable, Behavior is calm, cooperative. ll1 14:40 Pain: Complains of pain in L wrist Pain radiates to left arm Quality of pain is ll1 described as aching. Musculoskeletal: Circulation, motion, and sensation intact. Capillary refill < 3 seconds, Reports pain in L wrist. Vital Signs: 14:13 BP 130 / 73; Pulse 66; Resp 16; Temp 97.3(TE); Pulse Ox 100% ; Weight 58.97 kg; Height cm10 5 ft. 0 in. ; Pain 6/10; 14:13 Body Mass Index 25.39 (58.97 kg, 152.4 cm) cm10 14:13 Pain Scale: Adult cm10 ED Course: 13:55 Patient arrived in ED. mg5 13:56 Cherelle Smith MD is Attending Physician. sp3 14:15 Triage completed. cm10 14:15 Arm band placed on Patient placed in an exam room, on a stretcher. cm10 14:41 Patient has correct armband on for positive identification. Bed in low position. ll1 Cardiac monitoring not applicable on this patient. 15:15 Wrist Left (2 View) XRAY In Process Unspecified. EDMS 15:15 Elbow Left 2 View XRAY In Process Unspecified. EDMS 15:39 Ranjit Floyd MD is Referral Physician. sp3 15:57 Provided Education on: ER process and procedures. . cm10 15:57 No provider procedures requiring assistance completed. Patient did not have IV access cm10 during this emergency room visit. Orthoglass splint: Volar splint applied on left arm. Administered Medications: No medications were administered Medication: 14:41 VIS not applicable for this client. ll1 Outcome: 15:34 Discharge ordered by . sp3 15:58 Discharged to home ambulatory, cm10 15:58 Condition: good 15:58 Discharge instructions given to patient, Instructed on discharge instructions, follow up and referral plans. Demonstrated understanding of instructions, follow-up care, 15:58 Patient left the ED. cm10 Signatures: Dispatcher [employer] EDJesse Adkins RN RN ll1 Cherelle Smith MD MD sp3 Litzy Garcia RN RN cm10 Steffany Parish mg5 Corrections: (The following items were deleted from the chart) 14:40 14:39 General: Appears uncomfortable, Behavior is calm, cooperative, ll1 ll1
--- NOTE | 2023-05-31 15:35 | EDPHYS ---
Physician Documentation [facility] Name: Oneyda Johnson Age: 72 yrs Sex: Female : 1950 Arrival Date: 05/31/2023 Time: 13:52 Bed 11 Private MD: ED Physician Cherelle Smith HPI: 05/31 14:38 This 72 yrs old Female presents to ER via Ambulatory with complaints of Fall Injury, sp3 Arm Pain - Wrist Past Elbow. 14:38 72-year-old female with history of diabetes presents with mechanical fall outside with sp3 injury to the left wrist and elbow as well as the left knee where she had an abrasion presents to the ED for evaluation of the left upper extremity. She denies any head injury, loss of consciousness, headache, neck pain, chest pain, back pain, shortness of breath, abdominal pain, vomiting or diarrhea, bleeding, syncope, near syncope, medical prodrome to the fall, or any other signs or symptoms on ROS at this time. Patient is still able to move her hand on the left but is painful to the wrist area.. Historical: - Allergies: 14:12 No Known Allergies; cm10 - PMHx: 14:12 Diabetes - NIDDM; cm10 - PSHx: 14:12 Total abdominal hysterectomy; cm10 - Immunization history:: Adult Immunizations unknown. - Social history:: Smoking status: Patient denies any tobacco usage or history of. ROS: 14:39 Constitutional: Negative for fever, chills, and weight loss, Eyes: Negative for injury, sp3 pain, redness, and discharge, ENT: Negative for injury, pain, and discharge, Neck: Negative for injury, pain, and swelling, Cardiovascular: Negative for chest pain, palpitations, and edema, Respiratory: Negative for shortness of breath, cough, wheezing, and pleuritic chest pain, Abdomen/GI: Negative for abdominal pain, nausea, vomiting, diarrhea, and constipation, Back: Negative for injury and pain, Skin: Negative for injury, rash, and discoloration, Neuro: Negative for headache, weakness, numbness, tingling, and seizure, Psych: Negative for depression, anxiety, suicide ideation, homicidal ideation, and hallucinations, Allergy/Immunology: Negative for hives, rash, and allergies, Endocrine: Negative for neck swelling, polydipsia, polyuria, polyphagia, and marked weight changes, Hematologic/Lymphatic: Negative for swollen nodes, abnormal bleeding, and unusual bruising, 14:39 All other systems are negative, Exam: 14:39 Constitutional: This is a well developed, well nourished patient who is awake, alert, sp3 and in no acute distress. Head/Face: Normocephalic, atraumatic. Eyes: Pupils equal round and reactive to light, extra-ocular motions intact. Lids and lashes normal. Conjunctiva and sclera are non-icteric and not injected. Cornea within normal limits. Periorbital areas with no swelling, redness, or edema. Neck: Trachea midline, no thyromegaly or masses palpated, and no cervical lymphadenopathy. Supple, full range of motion without nuchal rigidity, or vertebral point tenderness. No Meningismus. Chest/axilla: Normal chest wall appearance and motion. Nontender with no deformity. No lesions are appreciated. Cardiovascular: Regular rate and rhythm with a normal S1 and S2. No gallops, murmurs, or rubs. Normal PMI, no JVD. No pulse deficits. Respiratory: Lungs have equal breath sounds bilaterally, clear to auscultation and percussion. No rales, rhonchi or wheezes noted. No increased work of breathing, no retractions or nasal flaring. Abdomen/GI: Soft, non-tender, with normal bowel sounds. No distension or tympany. No guarding or rebound. No evidence of tenderness throughout. Back: No spinal tenderness. No costovertebral tenderness. Full range of motion. Neuro: Awake and alert, GCS 15, oriented to person, place, time, and situation. Cranial nerves II-XII grossly intact. Motor strength 5/5 in all extremities. Sensory grossly intact. Cerebellar exam normal. Normal gait. Psych: Awake, alert, with orientation to person, place and time. Behavior, mood, and affect are within normal limits. 14:39 Musculoskeletal/extremity: Patient has swelling and pain to palpation to the left wrist area. Distal range of motion is intact however painful. Neurovascular distal exam is normal with patient able to make okay sign and normal cap refill. Distal left humerus is mildly painful to palpation as well. No effusion noted on the left elbow with normal range of motion. Left knee patella area has mild abrasion but otherwise no other abnormality in that area noted.. Vital Signs: 14:13 BP 130 / 73; Pulse 66; Resp 16; Temp 97.3(TE); Pulse Ox 100% ; Weight 58.97 kg; Height cm10 5 ft. 0 in. ; Pain 6/10; 14:13 Body Mass Index 25.39 (58.97 kg, 152.4 cm) cm10 14:13 Pain Scale: Adult cm10 MDM: 14:30 Patient medically screened. sp3 14:40 Data reviewed: vital signs, nurses notes. ED course: 72-year-old female with mechanical sp3 fall without medical prodrome. Left wrist swelling and left distal humerus pain will be evaluated with x-ray. Left knee requires no further diagnostics. Disposition will be based on x-ray results with likely splinting regardless.. 15:34 ED course: Nondisplaced distal radius fracture noted on x-ray. Will place in volar sp3 splint and discharged home to PCP and orthopedic follow-up. OTC pain meds as needed.. 05/31 14:17 Order name: Wrist Left (2 View) XRAY; Complete Time: 15:32 sp3 05/31 14:17 Order name: Elbow Left 2 View XRAY; Complete Time: 15:32 sp3 05/31 15:33 Order name: Volar Wrist Splint; Complete Time: 15:57 sp3 Administered Medications: No medications were administered Disposition Summary: 05/31/23 15:34 Discharge Ordered Notes: Location: Home sp3 Condition: Stable sp3 Diagnosis - Distal radius fracture, left sp3 Followup: sp3 - With: Ranjit Floyd MD - When: Upon discharge from the Emergency Department - Reason: Recheck today's complaints Discharge Instructions: - Discharge Summary Sheet sp3 - Wrist Fracture Treated With Immobilization sp3 Forms: - Medication Reconciliation Form sp3 - Thank You Letter sp3 - Antibiotic Education sp3 - Prescription Opioid Use sp3 - Patient Portal Instructions sp3 - Leadership Thank You Letter sp3 Signatures: Dispatcher [employer] Cherelle Rashid MD MD sp3 Litzy Garcia RN RN cm10
[2023-05-31 16:06] VITALS: BP 130/73; TEMP 97.3; O2SAT 100
== END 2023-05-31 15:58 | disposition home or self-care (01) ==
LOC: ER 13:52
DX: S52.502A Unspecified fracture of the lower end of left radius, initial encounter for closed fracture (principal); E11.9 Type 2 diabetes mellitus without complications
CPT/HCPCS: 99283